=== PATIENT | female | born 2000 | race Caucasian/White ===

== ENCOUNTER 2024-06-22 14:41 | Emergency (ER) | payer OTHER, SELFPAY ==
--- NOTE | ~2024-06-22 | CT_ITS ---
CT soft tissue neck w con Ordering provider: Odell Barakat MD History: 23 years Female with . Right side lower neck mass . Comparison: None. Technique: CT soft tissues neck was performed with contrast. . Automated exposure control and iterat kimberly reconstruction technique were employed. The dose-length product was 367.11 mGy-cm. 75 mL Omnipaqu e 350 was given IV. Findings: LOWER HEAD: The visualized brain parenchyma, optic globes/orbits and mastoids are normal. The visua lized paranasal sinuses are well aerated. Left maxillary sinus disease. SALIVARY GLANDS: Normal. THYROID: Normal. SUPRAHYOID DEEP SPACES: Slightly Enlarged submandibular and posterior triangle lymph nodes. The large st in the submandibular gland area measures 1.1 cm in the left and 1.7 cm in the right. The largest i n the posterior triangle measures 2.5 x 0.8 cm on the left and 1.9 x 1.5 cm on the right.. Minimal fa t stranding in the right and left posterior stranding is seen. CAROTID ARTERIES: Normal. JUGULAR VEINS: Normal. TONSILS: Bilaterally enlarged. ORAL CAVITY: Partially obscured by dental amalgam but normal as visualized. PHARYNX, LARYNX AND TRACHEA: Patent and normal. No prevertebral soft tissue swelling. SUPERFICIAL SOFT TISSUES: Normal. No lymphadenopathy or neck mass. THORACIC INLET/VISUALIZED UPPER CHEST: Normal. SKELETAL: Normal. IMPRESSION: 1. Lymphadenopathy in the submandibular and posterior triangle areas with fat stranding in the poste rior triangles. 2. Bilateral enlarged tonsils. 3. Left maxillary sinus disease. Reviewed, dictated and finalized at location A. [employer] ROOF PLUMBER IMPRESSION: 1. Lymphadenopathy in the submandibular and posterior triangle areas with fat stranding in the posterior triangles. 2. Bilateral enlarged tonsils. 3. Left maxillary sinus disease.
--- NOTE | ~2024-06-22 | XR_ITS ---
EXAMINATION: XR chest 2V DATE: 06/22/2024 17:21 INDICATION: Right arm numbness. TECHNIQUE: Frontal and lateral views of the chest were obtained. COMPARISON: None. FINDINGS: There is no pneumonia, pleural effusion, or pneumothorax. The heart size is normal. IMPRESSION: 1. No acute cardiopulmonary disease. Reviewed, dictated and finalized at location A. [employer] STORE ASSOCIATE
[2024-06-22 14:43] VITALS: BP 117/71; PULSE 79; RESP 16; TEMP 36.6; O2SAT 100
--- NOTE | 2024-06-22 16:11 | ED_ITS ---
HPI - General Adult General Chief complaint: Unspecified Stated complaint: lump on r side neck, tingling on r arm Time Seen by Provider: 06/22/24 15:50 Source: patient Mode of arrival: ambulatory Limitations: no limitations History of Present Illness HPI narrative: This is a 23-year-old female, with no significant past medical history, presents emergency department complaining of a lump on the side of her right neck for the past 2 months with intermittent paresthesia numbness in the right hand beginning today. The patient denies any known trauma or manipulation of the neck. She denies weakness in the arm, neck pain or fevers. She has no other complaints at this time. Related Data Allergies Allergy/AdvReac Type Severity Reaction Status Date / Time Iodinated Contrast Media Allergy Difficulty Verified 06/22/24 18:08 Breathing Review of Systems Review of Systems: Last menstrual period ongoing now All systems reviewed & are unremarkable except as noted in HPI and below PMFSH Past Medical History Medical History No significant past medical history Surgical History Surgical History No significant past surgical history Social History Social History Smoking status: Never smoker Alcohol intake: current Drinks per week: 1 Substance use: never Exam Narrative: GENERAL: Well-developed, well-nourished, and in no acute distress. HEAD: Normocephalic, atraumatic. EYES: PERRLA and EOMI. ENT: Nares clear, no rhinorrhea or epistaxis. Mucous membranes moist. Oropharynx without tonsillar hypertrophy exudate or other lesions. NECK: Supple. There is a nontender, mobile mass noted at the base of the right anterior neck CHEST: Clear to auscultation. No respiratory distress. No wheezes rales or rhonchi HEART: Regular rate and rhythm. No murmur heard. Normal peripheral pulses. EXTREMITIES: Normal range of motion. No edema. SKIN: Warm, dry, no rash. NEURO: Alert and oriented x3. No focal deficit. Moving all 4 limbs spontaneously PSYCH: Normal mood and affect. Course Course Emergency Course: 18:05 - Shortly after CT soft tissue neck with contrast, the patient demonstrates cough, sensation of throat closing and now has a hoarse voice. Will treat with IM epinephrine, steroids and IV antihistamines with concern for anaphylaxis. 19:10 - On re-evaluation, the patient states her symptoms are improving. 20:25 - On re-evaluation, the patient states she continues to improve and has not had recurrent symptoms. 21:55 - after 4 hours of observation status post IM epinephrine, steroids and antihistamines, the patient's per changes have improved. CT soft tissue neck demonstrates cervical lymphadenopathy with left maxillary sinusitis. Will discharge with a course of oral antibiotics and recommendation for primary care follow-up with thyroid ultrasound. I discussed the findings and recommendations with The patient. Discussed return and emergency precautions including signs/symptoms of deep space neck infection in airway compromise. The patient voiced understanding and agreement with the plan. All questions answered to her satisfaction. Vital Signs Vital signs: Vital Signs Temperature 97.9 F 06/22/24 14:43 Pulse Rate 79 06/22/24 14:43 Respiratory Rate 16 06/22/24 14:43 Blood Pressure 117/71 06/22/24 14:43 Pulse Oximetry 100 06/22/24 14:43 Temperature 98.0 F 06/22/24 18:19 Pulse Rate 98 06/22/24 22:38 Respiratory Rate 20 06/22/24 22:38 Blood Pressure 116/70 06/22/24 22:38 Pulse Oximetry 98 06/22/24 22:38 Medical Decision Making MDM Narrative Medical decision making narrative: plan: Imaging, labs, test, reassess Differential Diagnosis Differential Diagnosis: lymphadenopathy, abscess, goiter, thyroid mass, other Vital Signs Vital Signs: Vital Signs Temperature 97.9 F 06/22/24 14:43 Pulse Rate 79 06/22/24 14:43 Respiratory Rate 16 06/22/24 14:43 Blood Pressure 117/71 06/22/24 14:43 Pulse Oximetry 100 06/22/24 14:43 Temperature 98.0 F 06/22/24 18:19 Pulse Rate 98 06/22/24 22:38 Respiratory Rate 20 06/22/24 22:38 Blood Pressure 116/70 06/22/24 22:38 Pulse Oximetry 98 06/22/24 22:38 Lab Data 06/22/24 17:01 Labs: Lab Results 06/22/24 06/22/24 Range/Units 16:59 17:01 Sodium 137 (137-145) mmol/L Potassium 4.0 (3.4-5.0) mmol/L Chloride 103 (98-107) mmol/L Carbon Dioxide 29 (22-30) mmol/L Anion Gap 5 (4-12) mmol/L BUN 14 (7-17) mg/dL Creatinine 0.70 (0.7-1.0) mg/dL Estim Creat Clear Calc 76 ml/min Estimated GFR > 60 (59 - ) Glucose 98 (65-110) mg/dL Calcium 8.9 (8.4-10.2) mg/dL TSH (Reflex) 1.500 (0.465-4.68) uIU/mL POC Urine HCG, Qual Negative (Negative) Discharge Plan Discharge Clinical Impression: Adenopathy, cervical, Left maxillary sinusitis Anaphylaxis Qualifiers: Encounter type: initial encounter Qualified Code(s): T78.2XXA - Anaphylactic shock, unspecified, initial encounter Patient Disposition: Home, Self-Care Condition: Stable Instructions: Antibiotic Form, Sinusitis (ED), Anaphylaxis (ED) Additional Instructions: You were seen in the emergency department. A CT scan showed lymphadenopathy and left maxillary sinusitis. I recommend following up with your primary care doctor for an ultrasound of the thyroid. I suspect you had a serious allergic reaction to contrast dye. Your given epinephrine, steroids and antihistamines with improvement. If you develop difficulty breathing, difficulty swelling, persistent vomiting, or if you have other emergent concerns for life, limb, or eyesight, return to the emergency department. Patient Language: Syriac Prescriptions: New prednisone 20 mg tablet 20 mg PO DAILY Qty: 4 0RF famotidine 40 mg tablet 40 mg PO BID Qty: 8 0RF diphenhydramine HCl 50 mg capsule 50 mg PO Q12H Qty: 8 0RF epinephrine 0.3 mg/0.3 mL auto-injector 0.3 mg IM Q5-15M PRN (Reason: anaphylaxis) Qty: 2 0RF Rx Instructions: do not exceed 3 doses per episode doxycycline hyclate 100 mg tablet 100 mg PO BID 7 Days Qty: 14 0RF Follow-up/Referrals: Dr Tyrese [Other] - 2 Weeks PHYSICIAN,CLINICAL PRODUCT MANAGER [Non-Staff] - Time of Disposition: 21:59
[2024-06-22 17:04] LABS: BEDSIDEPREGUCG Negative (Negative)
[2024-06-22 17:32] LABS: Anion Gap 5 mmol/L (4-12); Blood Urea Nitrogen 14 mg/dL (7-17); Calcium 8.9 mg/dL (8.4-10.2); Carbon Dioxide 29 mmol/L (22-30); Chloride 103 mmol/L (98-107); Estimated CRCL calculation 76 ml/min; Estimated Glomerular Filt Rate > 60; Glucose 98 mg/dL (65-110); Sodium 137 mmol/L (137-145)
[2024-06-22] MEDS: diphenhydrAMINE HCl INJ 50 MG/ML VIAL IV PUSH (18:11)
[2024-06-22] MEDS: methylPREDNISolone SOD SUCC 125 MG VIAL IV PUSH (18:13)
[2024-06-22] MEDS: FAMOTIDINE 20 MG/2 ML VIAL 40 MG IV PUSH (18:15)
[2024-06-22] MEDS: EPINEPHrine HCL INJ 1 MG/ML AMPUL 0.3 MG IM (18:15)
[2024-06-22 18:19] VITALS: BP 128/78; PULSE 87; RESP 18; TEMP 36.7; O2SAT 100
--- NOTE | 2024-06-22 19:08 | PC.NURSE ---
Prior to receiving patient report, this RN was told by ANTONY Coto that patient received contrast for CT scan and had an allergic reaction after returning to ED. ANTONY states pt started having trouble breathing and received a dose of epi and now CT needs a nursing note stating so.
--- NOTE | 2024-06-22 19:15 | PC.NURSE ---
Assumed care of patient after receiving report from ZEN Castro. No questions at this time.
[2024-06-22 19:21] VITALS: BP 107/58; PULSE 93; RESP 16; O2SAT 100
[2024-06-22 22:38] VITALS: BP 116/70; PULSE 98; RESP 20; O2SAT 98
== END 2024-06-22 22:36 | disposition home or self-care (01) ==
PROVIDERS: Emergency Provider Preventive Medicine Aerospace Medicine
DX: R59.9 Enlarged lymph nodes, unspecified (principal); J32.0 Chronic maxillary sinusitis; T88.6XXA Anaphylactic reaction due to adverse effect of correct drug or medicament properly administered, initial encounter; T50.8X5A Adverse effect of diagnostic agents, initial encounter; Y84.2 Radiological procedure and radiotherapy as the cause of abnormal reaction of the patient, or of later complication, without mention of misadventure at the time of the procedure
CPT/HCPCS: 36415; 70491; 71046; 80048; 81025; 84443; 96372; 96374; 96375; 99284; J0171; J1200; J2919; Q9967

== ENCOUNTER 2024-06-28 12:09 | Emergency (ER) | payer OTHER, SELFPAY ==
--- NOTE | ~2024-06-28 | CT_ITS ---
EXAMINATION: CT abdomen pelvis wo con DATE: 06/28/2024 16:52 INDICATION: abd pain, N/V TECHNIQUE: Computed tomography (CT) of the abdomen and pelvis was performed without intravenous contr ast. Automated exposure control and iterative reconstruction technique were employed. The dose-length product was 301.18 mGy-cm. COMPARISON: None. FINDINGS: Lower thorax: Unremarkable Liver: Subcentimeter hypodensities likely representing cysts or hemangiomas. Biliary/Gallbladder: Gallbladder is normal. No bile duct dilation. Pancreas: No mass or duct dilation. Spleen: Normal. Adrenals:No mass. Kidneys: No suspicious mass, obstructing stone, or hydronephrosis. GI tract: No small or large bowel dilation. Normal appendix. Mesentery/Peritoneum: No ascites, mass, or free air. Retroperitoneum: No mass. Pelvis: Pelvic organs are within normal limits. Soft Tissues: Soft tissues and body wall unremarkable. Bones: No acute osseous finding. IMPRESSION: No acute abdominopelvic process detected. Reviewed, dictated and finalized at location K. NG MAKER
[2024-06-28 12:36] VITALS: BP 111/73; PULSE 110; RESP 20; TEMP 36.4; O2SAT 100
--- NOTE | 2024-06-28 13:15 | ED_ITS ---
HPI - Nausea/Vomiting/Diarrhea General Chief complaint: Nausea/Vomiting/Diarrhea <Paris Jarquin PA-C - Last Filed: 06/29/24 12:11> Stated complaint: n/v congestion <DONN Stevens Last Filed: 06/29/24 12:11> Time Seen by Provider: 06/28/24 13:16 <Paris Jarquin PA-C - Last Filed: 06/29/24 12:11> Focused HPI: This is a 23 year old female that presents to the ER for a stomach bug . Reports this has been going around her house. Reports she has had nausea and vomiting ongoing since this morning. Reports she feels very dehydrated. Reports subjective fevers. Denies diarrhea, dysuria or hematuria. GENERAL: Well-appearing, well-nourished, and in no acute distress. HEAD: Normocephalic, atraumatic. CHEST: Clear to auscultation. ?No respiratory distress. HEART: Regular rate and rhythm.? NEURO: ?Alert and oriented x3. Patient screened in triage and initial orders placed.? ?Additional care and disposition to be based upon?diagnostic testing and treatment. <Paris Jarquin PA-C - Last Filed: 06/29/24 12:11> Focused HPI: This is a 23 year old female that presents to the ER for a stomach bug . Reports this has been going around her house. Reports she has had nausea and vomiting ongoing since this morning. Reports she feels very dehydrated. Reports subjective fevers. Denies diarrhea, dysuria or hematuria. GENERAL: Well-appearing, well-nourished, and in no acute distress. HEAD: Normocephalic, atraumatic. CHEST: Clear to auscultation. ?No respiratory distress. HEART: Regular rate and rhythm.? NEURO: ?Alert and oriented x3. Patient screened in triage and initial orders placed.? ?Additional care and disposition to be based upon?diagnostic testing and treatment. <Chica Sung PA-C - Last Filed: 06/28/24 18:21> Source: patient <DONN Anaya Last Filed: 06/28/24 18:21> Mode of arrival: ambulatory <DONN Anaya Last Filed: 06/28/24 18:21> Limitations: no limitations <Chica Sung PA-C - Last Filed: 06/28/24 18:21> History of Present Illness HPI Narrative: Agree with above HPI. Reports diffuse abdominal pain. <Chica Sung PA-C - Last Filed: 06/28/24 18:21> Related Data Allergies/Adverse reactions: Allergies Allergy/AdvReac Type Severity Reaction Status Date / Time Iodinated Contrast Media Allergy Difficulty Verified 06/28/24 12:39 Breathing <Paris Jarquin PA-C - Last Filed: 06/29/24 12:11> Review of Systems 2 Review of Systems: All systems reviewed & are unremarkable except as noted in HPI. <Chica Sung PA-C - Last Filed: 06/28/24 18:21> All systems reviewed & are unremarkable except as noted in HPI and below < Chica Sung PA-C - Last Filed: 06/28/24 18:21> PMFSH Past Medical History Medical History: Medical History No significant past medical history <Paris Jarquin PA-C - Last Filed: 06/29/24 12:11> Surgical History Surgical History: Surgical History No significant past surgical history <Paris Jarquin PA-C - Last Filed: 06/29/24 12:11> Social History Social History: Social History Smoking status: Never smoker Alcohol intake: current Drinks per week: 1 Substance use: never <Paris Jarquin PA-C - Last Filed: 06/29/24 12:11> Exam 2 Narrative: GENERAL: Mildly ill appearing, well-nourished, non-toxic, in no acute distress. HEAD: Normocephalic, atraumatic. RESPIRATORY: Airway patent, respirations nonlabored. Clear to auscultation bilaterally, no rales, rhonchi, wheezing. CARDIOVASCULAR: Regular rate and rhythm without murmurs, rubs, or gallops. ABDOMINAL: Soft, diffuse tenderness throughout abdomen, nondistended. Normoactive BS. MUSCULOSKELETAL: Moves all extremities. No gross deformities. SKIN: Warm, dry, normal color. NEURO: A&O X3. Speech clear. Cranial nerves II-XII grossly intact. Steady gait. No ataxic movements. PSYCHIATRIC: Appropriate mood and affect. Normal interaction. <DONN Anaya Last Filed: 06/28/24 18:21> Course Vital Signs Vital signs: Vital Signs Temperature 97.5 F L 06/28/24 12:36 Pulse Rate 110 H 06/28/24 12:36 Respiratory Rate 20 06/28/24 12:36 Blood Pressure 111/73 06/28/24 12:36 Pulse Oximetry 100 06/28/24 12:36 Oxygen Delivery Room Air 06/28/24 12:36 Temperature 97.6 F 06/28/24 17:54 Pulse Rate 80 06/28/24 17:54 Respiratory Rate 14 06/28/24 17:54 Blood Pressure 102/58 L 06/28/24 17:54 Pulse Oximetry 100 06/28/24 17:54 Oxygen Delivery Room Air 06/28/24 12:36 <DONN Stevens Last Filed: 06/29/24 12:11> Vital Signs Temperature 97.5 F L 06/28/24 12:36 Pulse Rate 110 H 06/28/24 12:36 Respiratory Rate 20 06/28/24 12:36 Blood Pressure 111/73 06/28/24 12:36 Pulse Oximetry 100 06/28/24 12:36 Oxygen Delivery Room Air 06/28/24 12:36 Temperature 97.6 F 06/28/24 17:54 Pulse Rate 80 06/28/24 17:54 Respiratory Rate 14 06/28/24 17:54 Blood Pressure 102/58 L 06/28/24 17:54 Pulse Oximetry 100 06/28/24 17:54 Oxygen Delivery Room Air 06/28/24 12:36 <DONN Anaya Last Filed: 06/28/24 18:21> MDM - Nausea/Vomiting/Diarrhea MDM Narrative Medical decision making narrative: Patient presented to ED with c/o abdominal pain, nausea, vomiting, onset this morning. Reports several family members with similar symptoms. Initially tachycardic upon arrival. Improved by the time of my evaluation. Fluids initiated. Laboratory studies are unremarkable. No leukocytosis or anemia. Stable electrolytes. Stable kidney function. Normal LFTs. UA is clear. No significant evidence of dehydration. CT scan of abdomen/ pelvis was obtained and unremarkable. No significant intra-abdominal findings. Patient was given 1 L fluid bolus in the ED in addition to Bentyl and Zofran. She is feeling improved on re-evaluation. Able to tolerate PO intake. Discussed lab and imaging findings with patient. Discussed likelihood of viral gastroenteritis and continued management of such. Feel she is safe for discharge home. Will prescribe Zofran and Bentyl for home use. Given strict return precautions. She agrees with plan. Discharged in stable condition. <DONN Anaya Last Filed: 06/28/24 18:21> Medical Records Attestation: I reviewed the patient's medical records. <DONN Anaya Last Filed: 06/28/24 18:21> Lab Data Attestation: I reviewed the patient's lab results. <DONN Anaya Last Filed: 06/28/24 18:21> Result diagrams: 06/28/24 16:29 06/28/24 16:29 <DONN Stevens Last Filed: 06/29/24 12:11> Labs: Lab Results 06/28/24 06/28/24 06/28/24 Range/Units 15:58 15:59 16:29 WBC 7.8 (4.5-10.0) K/mm3 RBC 4.88 (4.2-5.4) M/mm3 Hgb 14.1 (12.0-15.0) g/dL Hct 44.4 (37.0-47.0) % MCV 91.0 (80-100) fl MCH 28.9 (26-34) pg MCHC 31.8 L (32-36) g/dl RDW 13.1 (11.5-14.5) % Plt Count 307 (150-375) k/mm3 MPV 8.4 (7.4-10.4) fl Immature Gran % (Auto) 0.5 (0-0.5) % Neut % (Auto) 74.4 H (45.5-73.1) % Lymph % (Auto) 17.0 L (18.3-44.2) % Andrews % (Auto) 7.2 (2.6-8.5) % Eos % (Auto) 0.4 (0-4.4) % Baso % (Auto) 0.5 (0.2-1.2) % Lymph # (Auto) 1.32 (0.9-3.2) K/mm3 Andrews # (Auto) 0.6 (0.1-0.6) K/mm3 Eos # (Auto) 0.0 (0-0.3) K/mm3 Baso # (Auto) 0.0 (0.0-0.1) K/mm3 Abs Immat Gran (auto) 0.04 H (0.00-0.031) K/mm3 Absolute Neuts (auto) 5.8 (1.3-6.7) K/mm3 Absolute Nucleated RBC 0.000 (0.0-0.012) K/mm3 Nucleated RBC % 0.0 (0.0-0.2) % Sodium 138 (137-145) mmol/L Potassium 3.6 (3.4-5.0) mmol/L Chloride 104 (98-107) mmol/L Carbon Dioxide 29 (22-30) mmol/L Anion Gap 5 (4-12) mmol/L BUN 21 H (7-17) mg/dL Creatinine 0.90 (0.7-1.0) mg/dL Estim Creat Clear Calc 69 ml/min Estimated GFR > 60 (59 - ) Glucose 101 (65-110) mg/dL Calcium 8.7 (8.4-10.2) mg/dL Total Bilirubin 1.1 (0.2-1.3) mg/dL AST 17 (14-36) U/L ALT 10 (6-35) U/L Alkaline Phosphatase 56 (38-126) U/L Total Protein 7.0 (6.3-8.2) g/dL Albumin 4.2 (3.5-5.1) g/dL Lipase 89 (23-300) U/L Urine Color Yellow (Yellow) Urine Appearance Clear (Clear) Urine pH 5.0 (5.0-9.0) Ur Specific [place] 1.033 (1.001-1.035) Urine Protein Negative (Negative) mg/dL Urine Glucose (UA) Negative (Negative) mg/dL Urine Ketones Negative (Negative) mg/dL Ur Blood (Man) Negative (Negative) Urine Nitrate Negative (Negative) Urine Bilirubin Negative (Negative) Urine Urobilinogen 0.2 (<2.0) mg/dL Leukocyte Esterase Rfl Negative (Negative) ANGELA/UL POC Urine HCG, Qual Negative (Negative) <Paris Jarquin PA-C - Last Filed: 06/29/24 12:11> Lab Results 06/28/24 06/28/24 06/28/24 Range/Units 15:58 15:59 16:29 WBC 7.8 (4.5-10.0) K/mm3 RBC 4.88 (4.2-5.4) M/mm3 Hgb 14.1 (12.0-15.0) g/dL Hct 44.4 (37.0-47.0) % MCV 91.0 (80-100) fl MCH 28.9 (26-34) pg MCHC 31.8 L (32-36) g/dl RDW 13.1 (11.5-14.5) % Plt Count 307 (150-375) k/mm3 MPV 8.4 (7.4-10.4) fl Immature Gran % (Auto) 0.5 (0-0.5) % Neut % (Auto) 74.4 H (45.5-73.1) % Lymph % (Auto) 17.0 L (18.3-44.2) % Andrews % (Auto) 7.2 (2.6-8.5) % Eos % (Auto) 0.4 (0-4.4) % Baso % (Auto) 0.5 (0.2-1.2) % Lymph # (Auto) 1.32 (0.9-3.2) K/mm3 Andrews # (Auto) 0.6 (0.1-0.6) K/mm3 Eos # (Auto) 0.0 (0-0.3) K/mm3 Baso # (Auto) 0.0 (0.0-0.1) K/mm3 Abs Immat Gran (auto) 0.04 H (0.00-0.031) K/mm3 Absolute Neuts (auto) 5.8 (1.3-6.7) K/mm3 Absolute Nucleated RBC 0.000 (0.0-0.012) K/mm3 Nucleated RBC % 0.0 (0.0-0.2) % Sodium 138 (137-145) mmol/L Potassium 3.6 (3.4-5.0) mmol/L Chloride 104 (98-107) mmol/L Carbon Dioxide 29 (22-30) mmol/L Anion Gap 5 (4-12) mmol/L BUN 21 H (7-17) mg/dL Creatinine 0.90 (0.7-1.0) mg/dL Estim Creat Clear Calc 69 ml/min Estimated GFR > 60 (59 - ) Glucose 101 (65-110) mg/dL Calcium 8.7 (8.4-10.2) mg/dL Total Bilirubin 1.1 (0.2-1.3) mg/dL AST 17 (14-36) U/L ALT 10 (6-35) U/L Alkaline Phosphatase 56 (38-126) U/L Total Protein 7.0 (6.3-8.2) g/dL Albumin 4.2 (3.5-5.1) g/dL Lipase 89 (23-300) U/L Urine Color Yellow (Yellow) Urine Appearance Clear (Clear) Urine pH 5.0 (5.0-9.0) Ur Specific [place] 1.033 (1.001-1.035) Urine Protein Negative (Negative) mg/dL Urine Glucose (UA) Negative (Negative) mg/dL Urine Ketones Negative (Negative) mg/dL Ur Blood (Man) Negative (Negative) Urine Nitrate Negative (Negative) Urine Bilirubin Negative (Negative) Urine Urobilinogen 0.2 (<2.0) mg/dL Leukocyte Esterase Rfl Negative (Negative) ANGELA/UL POC Urine HCG, Qual Negative (Negative) <Chica Sung PA-C - Last Filed: 06/28/24 18:21> Imaging Data Attestation: I personally reviewed and interpreted this imaging study as follows: < Chica Sung PA-C - Last Filed: 06/28/24 18:21> Radiologist's impression: ITS Impressions Abdomen/Pelvis CT 06/28/24 16:56 IMPRESSION: No acute abdominopelvic process detected. <Chica Sung PA-C - Last Filed: 06/28/24 18:21> Critical Care Time Critical Care Time Critical Care Time: No <DONN Stevens Last Filed: 06/29/24 12:11> Discharge Plan Discharge Clinical Impression: Gastroenteritis <DONN Stevens Last Filed: 06/29/24 12:11> Patient Disposition: Home, Self-Care <DONN Stevens Last Filed: 06/29/24 12:11> Condition: Stable <DONN Stevens Last Filed: 06/29/24 12:11> Instructions: Antibiotic Form, Dehydration (ED), Gastroenteritis (ED), Acute Nausea and Vomiting (ED) <DONN Stevens Last Filed: 06/29/24 12:11> Additional Instructions: Utilize zofran as needed for further nausea. Continue Tylenol, Bentyl as needed for further abdominal discomfort. Increase fluid intake. Recommend electrolyte rich fluids, gatorade, pedialyte, body armour. Recommend clear liquids or bland diet until symptoms improve, such as bananas, rice, applesauce, toast, or crackers. Follow up with your primary care doctor for further evaluation. Return to the ED if you experience worsening or severe symptoms, unable to keep down food or drink, severe pain, fevers, rectal bleeding, vomiting blood, or any other symptoms of concern. <Paris Jarquin PA-C - Last Filed: 06/29/24 12:11> Patient Language: Croatian <DONN Stevens Last Filed: 06/29/24 12:11> Prescriptions: New dicyclomine 20 mg tablet 20 mg PO TID PRN (Reason: Abdominal Discomfort) Qty: 15 0RF ondansetron 4 mg tablet,disintegrating 4 mg PO Q8H PRN (Reason: nausea and vomiting) Qty: 15 0RF No Action prednisone 20 mg tablet 20 mg PO DAILY Qty: 4 0RF famotidine 40 mg tablet 40 mg PO BID Qty: 8 0RF diphenhydramine HCl 50 mg capsule 50 mg PO Q12H Qty: 8 0RF epinephrine 0.3 mg/0.3 mL auto-injector 0.3 mg IM Q5-15M PRN (Reason: anaphylaxis) Qty: 2 0RF Rx Instructions: do not exceed 3 doses per episode doxycycline hyclate 100 mg tablet 100 mg PO BID 7 Days Qty: 14 0RF <Paris Jarquin PA-C - Last Filed: 06/29/24 12:11> Follow-up/Referrals: UNKNOWN,DOCTOR [Primary Care Provider] - <Paris Jarquin PA-C - Last Filed: 06/29/24 12:11> Time of Disposition: 18:19 <Paris Jarquni PA-C - Last Filed: 06/29/24 12:11> 18:19 <Chica Sung PA-C - Last Filed: 06/28/24 18:21>
[2024-06-28 16:01] LABS: BEDSIDEPREGUCG Negative (Negative)
[2024-06-28 16:07] LABS: Add Urine Microscopic? NO; Appearance Urine Clear (Clear); Bilirubin Urine Negative (Negative); Blood Urine Negative (Negative); Color Urine Yellow (Yellow); Glucose Urine UA Negative (Negative); Ketones Urine Negative (Negative); Leukocyte Esterase Ur Negative LEU/UL (Negative); Nitrate Urine Negative (Negative); Protein Urine Negative (Negative); Specific Grav Ur 1.033 (1.001-1.035); Urobilinogen Urine 0.2 mg/dL (<2.0)
[2024-06-28 16:27] VITALS: BP 110/77; PULSE 88; RESP 16; TEMP 36.7; O2SAT 100
[2024-06-28] MEDS: SODIUM CHLORIDE 0.9% IV 1,000 ML 999 ML IV CONT (16:31)
[2024-06-28] MEDS: ONDANSETRON INJ 4 MG/2 ML VIAL IV PUSH (16:33)
[2024-06-28] MEDS: DICYCLOMINE HCL 10 MG CAPSULE 20 MG PO (16:44)
[2024-06-28 16:47] LABS: Basophils Percent Auto 0.5 % (0.2-1.2); Eosinophils Percent Auto 0.4 % (0-4.4); Hematocrit 44.4 % (37.0-47.0); Hemoglobin 14.1 g/dL (12.0-15.0); Immature Granulocyte Absolute 0.04 K/mm3 (0.00-0.031); Immature Granulocyte Percent A 0.5 % (0-0.5); Lymphocytes Absolute Auto 1.32 K/mm3 (0.9-3.2); Mean Corpuscular HGB Conc 31.8 g/dl (32-36); Mean Corpuscular Hemoglobin 28.9 pg (26-34); Mean Platelet Volume 8.4 fl (7.4-10.4); Monocytes Absolute Auto 0.6 K/mm3 (0.1-0.6); Monocytes Percent Auto 7.2 % (2.6-8.5); Neutrophils Absolute Auto 5.8 K/mm3 (1.3-6.7); Neutrophils Percent Auto 74.4 % (45.5-73.1); Platelet Count Result 307 k/mm3 (150-375); Red Blood Count 4.88 M/mm3 (4.2-5.4); Red Cell Distribution Width 13.1 % (11.5-14.5); White Blood Count 7.8 K/mm3 (4.5-10.0)
[2024-06-28 17:01] LABS: Alanine Aminotransferase 10 U/L (6-35); Albumin Level 4.2 g/dL (3.5-5.1); Alkaline Phosphatase 56 U/L (38-126); Anion Gap 5 mmol/L (4-12); Aspartate Amino Transferase 17 U/L (14-36); Bilirubin,Total 1.1 mg/dL (0.2-1.3); Blood Urea Nitrogen 21 mg/dL (7-17); Calcium 8.7 mg/dL (8.4-10.2); Carbon Dioxide 29 mmol/L (22-30); Chloride 104 mmol/L (98-107); Estimated CRCL calculation 69 ml/min; Estimated Glomerular Filt Rate > 60; Glucose 101 mg/dL (65-110); Lipase 89 U/L (23-300); Potassium 3.6 mmol/L (3.4-5.0); Sodium 138 mmol/L (137-145)
[2024-06-28 17:54] VITALS: BP 102/58; PULSE 80; RESP 14; TEMP 36.4; O2SAT 100
[2024-06-28] MEDS: KETOROLAC 30 MG/ML VIAL (*BKC) IV PUSH (18:22)
== END 2024-06-28 18:31 | disposition home or self-care (01) ==
PROVIDERS: Physician Assistant; Emergency Provider Physician Assistant
DX: K52.9 Noninfective gastroenteritis and colitis, unspecified (principal)
CPT/HCPCS: 36415; 74176; 80053; 81003; 81025; 83690; 85025; 96361; 96374; 96375; 99284; A9270; J1885; J2405; J7030

== ENCOUNTER 2025-07-11 16:07 | Emergency (ER) | payer OTHER, SELFPAY ==
[2025-07-11 16:20] VITALS: BP 103/73; PULSE 95; RESP 16; TEMP 37; O2SAT 99
--- NOTE | 2025-07-11 16:27 | ED.URI ---
HPI - URI/Sore Throat General Chief Complaint: Upper Respiratory Infection Stated Complaint: SORE THROAT Time Seen by Provider: 07/11/25 16:20 Source: patient and RN notes reviewed Mode of arrival: ambulatory Limitations: no limitations History of Present Illness HPI Narrative: 24-year-old female patient presents today with an intermittent sore throat for the past 2 weeks, worse today. Denies any additional symptoms to include fever, cough, rhinorrhea, congestion. She currently rates her pain 2/10 and has tried no OTC treatment prior to arrival. Related Data Allergies Allergy/AdvReac Type Severity Reaction Status Date / Time Iodinated Contrast Media Allergy Difficulty Verified 07/11/25 16:22 Breathing PMFSH Past Medical History Medical History No significant past medical history Surgical History Surgical History No significant past surgical history Social History Social History Smoking status: Never smoker Alcohol intake: current Drinks per week: 1 Substance use: never Comments At time of signature, I have reviewed and agree with nursing past medical, surgical, social and family history unless otherwise noted. Please see nursing chart for further information. There is no relevant family history pertinent to the presenting complaint Exam Narrative: GENERAL: Well-appearing, well-nourished, and in no acute distress. HEAD: Normocephalic, atraumatic. EYES: EOMI. No redness or drainage. Conjunctivae normal. ENT: Mucous membranes pink and moist. Nares clear. No rhinorrhea. TMs normal bilaterally. Throat mildly erythematous without edema or exudate. Uvula midline. NECK: Normal AROM. Supple. No lymphadenopathy. CHEST: No respiratory distress. Clear to auscultation. HEART: Regular rate and rhythm. No murmur appreciated. EXTREMITIES: Normal range of motion. No edema. SKIN: Warm, dry, no rash. Capillary refill normal. Normal skin turgor. NEURO: No focal deficits. Alert and oriented x3. Gait steady. PSYCH: Normal affect. No signs of depression or anxiety. Course Course Level of Care: Express Care Visit Vital Signs Vital signs: Vital Signs Temperature 98.6 F 07/11/25 16:20 Pulse Rate 95 07/11/25 16:20 Respiratory Rate 16 07/11/25 16:20 Blood Pressure 103/73 07/11/25 16:20 Pulse Oximetry 99 07/11/25 16:20 Temperature 98.6 F 07/11/25 16:20 Pulse Rate 95 07/11/25 16:20 Respiratory Rate 16 07/11/25 16:20 Blood Pressure 103/73 07/11/25 16:20 Pulse Oximetry 99 07/11/25 16:20 Reviewed [facility] Narrative Medical decision making narrative: 24-year-old female patient presents today with an intermittent sore throat for the past 2 weeks, worse today. Denies any additional symptoms to include fever, cough, rhinorrhea, congestion. She currently rates her pain 2/10 and has tried no OTC treatment prior to arrival. Upon exam, patient has a mildly erythematous throat without edema or exudate. Exam is otherwise normal. Rapid strep negative. Culture pending. Symptoms likely viral in etiology. Discussed [id number] medication use and duration of illness. No prescription medications indicated at this time. Anticipatory guidance given. Patient agrees with plan. Vital signs stable. Differential Diagnosis Differential Diagnosis: Pharyngitis, strep throat, URI, gerd Lab Data [facility] Lab Attestation statement: I personally reviewed the patient's lab results. Labs: Lab Results 07/11/25 Range/Units 16:40 POC Grp A Strep Screen Negative (Negative) Critical Care Time Critical Care Time Critical Care Time: No Discharge Plan Discharge Clinical Impression: Pharyngitis Qualifiers: Pharyngitis/tonsillitis etiology: unspecified etiology Qualified Code(s): J02.9 - Acute pharyngitis, unspecified Patient Disposition: Home Condition: Stable Instructions: Pharyngitis (ED) Additional Instructions: Your rapid strep swab was negative today at [facility]. You will be notified in a few days if the culture comes back positive for strep, and appropriate antibiotics will be called in for you at that time. Your symptoms are likely due to a viral illness, which is not treated with antibiotics. Viral symptoms can be present for up to 7-14 days. Take Tylenol or ibuprofen for fever or pain. Rest and stay hydrated. Follow up with your PCP in 5-7 days if symptoms are not improving. Go to the ER immediately if you have any difficulty breathing or swallowing. Patient Language: Greek Prescriptions: No Action epinephrine 0.3 mg/0.3 mL auto-injector 0.3 mg IM Q5-15M PRN (Reason: anaphylaxis) Qty: 2 0RF Rx Instructions: do not exceed 3 doses per episode dicyclomine 20 mg tablet 20 mg PO TID PRN (Reason: Abdominal Discomfort) Qty: 15 0RF Follow-up/Referrals: Tyrese,Shannon [Other] Time of Disposition: 17:06
[2025-07-11 16:42] LABS: EDSTREPNEGPOS1 Negative (Negative)
== END 2025-07-11 17:12 | disposition home or self-care (01) ==
PROVIDERS: Emergency Provider Nurse Practitioner
DX: J02.9 Acute pharyngitis, unspecified (principal)
CPT/HCPCS: 87081; 87880; 99213; G0463